=== PATIENT | female | born 1970 | race American Indian/Alaskan Native ===

== ENCOUNTER 2017-01-24 17:11 | Emergency (ER) | payer OTHER ==
[2017-01-24 17:37] VITALS: BP 113/85
[2017-01-24] MEDS ORDERED: ULTRAM PO ONE (21:23)
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
== END 2017-01-24 21:52 | disposition home or self-care (01) ==
LOC: ED 17:11
DX: M79.1 Myalgia (principal); I10 Essential (primary) hypertension; F12.10 Cannabis abuse, uncomplicated; V43.64XA Car passenger injured in collision with van in traffic accident, initial encounter; Y93.89 Activity, other specified; Y92.89 Other specified places as the place of occurrence of the external cause; Y99.8 Other external cause status
CPT/HCPCS: 99282

== ENCOUNTER 2018-08-18 14:25 | Outpatient (CLI) | payer BC ==
--- NOTE | 2018-08-18 15:56 | Mammography Report ---
BILATERAL DIGITAL SCREENING MAMMOGRAM with CAD: 08/18/18 14:25:00 CLINICAL: Routine screening. COMPARISON:04/05/16 and 05/18/13 FINDINGS: The breasts are mostly fatty. A right inner circumscribed focal asymmetry requires additional imaging.No architectural distortion or suspicious calcifications.The left breast is negative. IMPRESSION: Right asymmetry requiring further workup. BI-RADS CATEGORY: 0 -- Additional Imaging Evaluation Required RECOMMENDATION: Recall for right LM and spot compression MLO and CC views and targeted right breast ultrasound. COMMENT: 1. Dense breast tissue, i.e., adenosis, fibrocystic changes, etc., may obscure an underlying neoplasm. 2. Approximately 10% of cancers are not detected with mammography. 3. A negative mammography report should not delay biopsy if a clinically suspicious mass is present. COMMENT: Patient follow-up letters are generated via our [employer] application.
== END 2018-08-18 14:26 | disposition home or self-care (01) ==
LOC: MAMMO 14:25
PROVIDERS: ATTEND Family Medicine
DX: Z12.31 Encounter for screening mammogram for malignant neoplasm of breast (principal); I10 Essential (primary) hypertension
CPT/HCPCS: 77067